=== PATIENT | female | born 2005 | race Caucasian/White ===

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

== ENCOUNTER 2024-06-10 15:28 | Emergency (ER) | payer OTHER ==
[~2024-06-10] VITALS: Ht 157.5 cm; Wt 50.0 kg
[~2024-06-10 15:28] MED LIST changes: +ALDACTONE50 MG PO; +PIRMELLA 1/351 TAB PO
[2024-06-10 15:33] VITALS: BP 119/78; TEMP 99
[2024-06-10] MEDS ORDERED: Ibuprofen 400 MG TAB PO ONE (19:30)
[2024-06-10] MEDS ORDERED: Cyclobenzaprine 10 MG TAB PO ONE (19:30)
[2024-06-10] MEDS ORDERED: NORCO 325 MG-51 TAB PO (19:32)
[2024-06-10] MEDS ORDERED: FLEXERIL 1010 MG/TAB PO (19:32)
[2024-06-10] MEDS ORDERED: MOTRIN 800800 MG/TAB PO (19:32)
[2024-06-10 20:04] VITALS: PULSE 98
== END 2024-06-10 20:04 | disposition home or self-care (01) ==
LOC: COL.ER 15:28
DX: S29.012A Strain of muscle and tendon of back wall of thorax, initial encounter (principal); X50.0XXA Overexertion from strenuous movement or load, initial encounter